=== PATIENT | female | born 1965 | race Two or more races ===

== ENCOUNTER 2018-09-18 10:42 | Inpatient (IN) | payer MEDICARE ==
[~2018-09-18] VITALS: Ht 172.7 cm; Wt 74.8 kg
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
[2018-09-18 14:01] LABS: APPEARANCE,URINE Slightly Cloudy (CLEAR); BILIRUBIN,URINE Negative (NEGATIVE); BLOOD, URINE Trace-lysed Ery/uL (NEGATIVE); COLOR,URINE Yellow (YELLOW); KETONES,URINE Trace (NEGATIVE); LEUKOCYTE ESTERASE ,URINE Small (NEGATIVE); NITRITE, URINE Negative (NEGATIVE); PH,URINE 5.5 (5.0-8.0); PROTEIN,URINE Trace mg/dl (NEGATIVE); UGLUCOSE Negative (NEGATIVE); UROBILINOGEN,URINE 0.2 EU/dL (0.2)
[2018-09-18 14:09] LABS: BACTERIA,URINE 1+ /HPF (None Seen); SQUAMOUS EPITHELIAL CELL,UR Few /HPF (None Seen)
[2018-09-18 14:15] LABS: BASOPHILS # (AUTO) 0.1 /CMM (0.0-0.2); BASOPHILS % (AUTO) 1.1 % (0.0-2.0); EOSINOPHILS % (AUTO) 5.4 % (0.0-6.0); HEMATOCRIT 50 % (33-45); HEMOGLOBIN 16.2 g/dL (11.5-14.8); LYMPHOCYTES # (AUTO) 1.5 /CMM (0.8-4.8); MEAN CORPUSCULAR HGB CONC 33 g/dl (31.0-36.0); MEAN CORPUSCULAR VOLUME 91 fL (82-100); MONOCYTES # (AUTO) 0.5 /CMM (0.1-1.30); MONOCYTES % (AUTO) 7.3 % (2.0-12.0); NEUTROPHILS # (AUTO) 4.6 /CMM (1.8-8.9); NEUTROPHILS % (AUTO) 65.2 % (43.0-81.0); PLATELET COUNT (AUTO) 273 /CMM (150-450); RED BLOOD CELL COUNT(AUTO) 5.49 MIL/uL (4.0-5.2); WHITE BLOOD COUNT (AUTO) 7.1 K/uL (4.3-11.0)
[2018-09-18 14:22] LABS: CALCIUM, SERUM 9.3 mg/dL (8.5-10.1); CARBON DIOXIDE 29 mmol/L (21-32); CHLORIDE 105 mmol/L (98-107); GLUCOSE 107 mg/dL (74-106); POTASSIUM 4.1 mmol/L (3.5-5.1); SODIUM SERUM 140 mmol/L (136-145); UREA NITROGEN, BLOOD 15 mg/dL (7-18)
[2018-09-18 14:28] LABS: ALANINE AMINOTRANSFERASE 31 U/L (12-78); ALBUMIN 3.4 g/dL (3.4-5.0); ALCOHOL, BLOOD < 3 mg/dL (0-0); ALKALINE PHOSPHATASE 110 U/L (46-116); ASPARTATE AMINOTRANSFERASE 19 U/L (15-37); BILIRUBIN,DIRECT 0.1 mg/dL (0.0-0.2); BILIRUBIN,TOTAL 0.8 mg/dL (0.2-1.0); SALICYLATE 0.9 mg/dL (2.8-20.0); TOTAL PROTEIN, SERUM 7.7 g/dL (6.4-8.2)
[2018-09-18 14:29] LABS: ACETAMINOPHEN < 2 ug/ml (10-30)
[2018-09-18] MEDS ORDERED: MULT-24 PO (15:02)
[2018-09-18] MEDS ORDERED: CALC-7 PO (15:02)
[2018-09-18] MEDS ORDERED: FERR325T23 PO (15:02)
--- NOTE | 2018-09-18 17:45 | NUR ---
REPORT GIVEN TO KENDAL CLARK FOR DUNG
[2018-09-18] MEDS ORDERED: FOLI1TAB16 PO (18:18)
[2018-09-18] MEDS ORDERED: THIA100T74 PO (18:18)
[2018-09-18] MEDS ORDERED: ACETAMINOPHEN 325 MG TABLET PO PRN (19:00)
[2018-09-18] MEDS ORDERED: TEMAZEPAM 7.5 MG CAPSULE PO PRN (19:00)
[2018-09-18] MEDS ORDERED: LORAZEPAM 0.5 MG TABLET PO PRN (19:00)
[2018-09-18] MEDS ORDERED: MAGNESIUM HYDROXIDE 30 ML UDC PO PRN (19:00)
[2018-09-18] MEDS ORDERED: MAG HYDROX/AL HYDROX/SIMETH 30 ML UDC PO PRN (19:00)
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
[2018-09-18 20:00] VITALS: BP 111/62
--- NOTE | 2018-09-19 06:17 | NUR ---
gps rn notes: inspected patient's right arm with the splint, noted patient's fingers to be swelling from the jonathon wrap. released the wrap. patient denies any pain this time. picture on the right hand/wrist area taken.will endorse to day shift nurse.
[2018-09-19 07:17] LABS: CALCIUM, SERUM 8.7 mg/dL (8.5-10.1); POTASSIUM 4.2 mmol/L (3.5-5.1)
[2018-09-19 07:43] LABS: ALBUMIN 3.2 g/dL (3.4-5.0); BILIRUBIN,TOTAL 0.9 mg/dL (0.2-1.0); TOTAL PROTEIN, SERUM 7.2 g/dL (6.4-8.2)
[2018-09-19 08:00] VITALS: BP 97/56
--- NOTE | 2018-09-19 12:27 | NUR ---
Pt. refused labs at this time.
--- NOTE | 2018-09-19 13:44 | NUR ---
WOUND CARE CONSULT: PT PRESENTS WITH LEFT INNER BUTTOCK SCARRING, VERY LONG DISCOLORED TOENAILS AND SLIGHT REDNESS TO BREASTFOLDS, PRESENT ON ADMISSION. RECOMMENDATONS MADE FOR SKIN PROTECTION. DISCUSSED WITH NURSING STAFF. RECOMMEND DPM CONSULT.
[2018-09-19] MEDS ORDERED: Z GUARD REMEDY 2 OZ OINT TP PRN (14:00)
[2018-09-19] MEDS: Z GUARD REMEDY 2 OZ OINT TP SCH (15:29)
[2018-09-19 16:00] VITALS: BP 120/64
[2018-09-19] MEDS: OLANZAPINE 5 MG/TAB.RAPDIS PO SCH (16:16)
[2018-09-19 20:15] VITALS: BP 102/67
--- NOTE | 2018-09-19 21:40 | NUR ---
GPS RN NOTE, PATIENT HAS A COMPLAINT OF COUGH AND CONGESTION. PATIENT SPO2 IS 91 % ON 2 LITERS VIA NASAL CANNULA. PATIENT IS WHEEZING THROUGHOUT WITH BILATERAL DIMINISHED BASES PER AUSCULTATION. PAGED [facility] AND INFORMED GILBERT LOVE DNP OF MY FINDINGS. GILBERT LOVE DNP ORDERED TO HAVE A CHEST X-RAY 1 VIEW STAT, GIVE ALBUTEROL 2.5MG / 3ML VIA NEB Q6HR PRN , AND GIVE IPRATROPIUM 0.5MG VIA NEB Q6HR PRN. ALL ORDERS NOTED AND CARRIED OUT. WILL CONTINUE TO MONITOR THIS PATIENT.
[2018-09-19] MEDS ORDERED: ALBUTEROL FS 2.5 MG/3 ML VIAL.NEB NEB PRN (22:00)
[2018-09-19] MEDS ORDERED: IPRATROPIUM NEB FS 0.5 MG/2.5 ML AMPUL.NEB NEB PRN (22:00)
[2018-09-19] MEDS: CEPHALEXIN MONOHYDRATE 250 MG CAPSULE PO SCH (23:49)
--- NOTE | 2018-09-20 00:23 | NUR ---
GPS RN NOTE, PATIENT CHEST X- RAY RESULTS ARE FOLLOWS, Cardiomegaly and pulmonary vascular congestion with diffuse interstitial infiltrates/edema and small bilateral pleural effusions AND Atherosclerotic disease of the aorta. [facility] AND INFORMED GILBERT LOVE DNP OF MY FINDINGS. GILBERT LOVE DNP ORDERED TO GIVE BUMEX 2MG PO ONCE NOW, TO GIVE BUMEX 2MG PO AT 0300 ONCE, TO GIVE KDUR 40 MEQ PO ONCE NOW, AND TO HAVE A BMP DRAWN AT 0600 A.M. ALL ORDERS NOTED AND CARRIED OUT. WILL CONTINUE TO MONITOR THIS PATIENT.
[2018-09-20 00:30] VITALS: BP 107/69
[2018-09-20] MEDS ORDERED: BUMETANIDE (1 MG) 1 MG TABLET PO ONE ×2 (00:30→03:00)
[2018-09-20] MEDS ORDERED: POTASSIUM CHLORIDE 20 MEQ TAB.PRT.SR PO ONE (00:30)
[2018-09-20] MEDS ORDERED: BUMETANIDE (1 MG) 1 MG TABLET ONE ×2 (01:05→03:14)
[2018-09-20 03:30] VITALS: BP 118/73
[2018-09-20] MEDS: CEPHALEXIN MONOHYDRATE 250 MG CAPSULE PO SCH (06:07)
[2018-09-20 08:00] VITALS: BP 114/50
[2018-09-20 08:45] LABS: ABG BASE EXCESS 4.2 mmol/L; ABG OXYGEN SATURATION 94.6 % (92.0-98.5); ABG PCO2 66.2 mmHg (35.0-45.0); ABG PH 7.312 (7.350-7.450); AaDO2 53.1 mmHg; COHb 1.2 % (0.5-1.5); MetHb 0.5 % (0.0-1.5); SITE, ABG Right Radial; VENT MODE, BG CANNULA
[2018-09-20] MEDS ORDERED: MULTIVITAMINS,THERAGRAN 1 UDTAB TABLET PO SCH (09:00)
[2018-09-20] MEDS ORDERED: FERROUS SULFATE (325 MG) 325 MG/TAB TABLET PO SCH (09:00)
[2018-09-20] MEDS ORDERED: CALCIUM CARB 250MG /VITAMIN D 1 UDTAB PO SCH (09:00)
[2018-09-20] MEDS ORDERED: FOLIC ACID 1 MG TABLET PO SCH (09:00)
[2018-09-20] MEDS: Z GUARD REMEDY 2 OZ OINT TP SCH (09:00)
[2018-09-20] MEDS ORDERED: THIAMINE HCL 100 MG TABLET PO SCH (09:00)
[2018-09-20] MEDS: OLANZAPINE 5 MG/TAB.RAPDIS PO SCH (09:00)
--- NOTE | 2018-09-20 09:08 | NUR ---
RN NOTE: KIKE ORDERED PATIENT TO BE TRANSFERED TO ICU. KIKE ORDERED TO HOLD MEDS OF PATIENTS.
--- NOTE | 2018-09-20 10:34 | NUR ---
DISCHARGE NOTE: PER REPORT, LAST NIGHT PATIENT HAD SHORTNESS OF BREATH, WHEEZING. CXRAY STATED PATIENT HAD PLEURAL EFFUSION. THIS MORNING [facility] ORDERED DISCHARGE TO ICU. UPON DISCHARGE PATIENT WAS ALERT AND ORIENTED AND AWAKE. BELONGINGS WITH PATIENT. EXIT CARE LEFT WITH PATIENT. GANESH PSYCHIATRIST AWARE OF DISCHARGE TO ICU.
--- NOTE | 2018-09-20 11:20 | NUR ---
Initial Discharge Plan: Pt is currently homeless and does not have anyone in her support system. Per pt, she would be willing to have the SW assist her in finding placement. SW stated that she would explore SNF placement for the pt. SW will work with the pt and the MD regarding appropriate discharge planning. SW will form a safe and proper discharge.
[2018-09-20 11:22] LABS: CALCIUM, SERUM 9.1 mg/dL (8.5-10.1); POTASSIUM 4.8 mmol/L (3.5-5.1)
--- NOTE | 2018-09-20 14:09 | NUR ---
SW conducted a substance abuse intervention with the pt but she refused to sign the assessment due to her paranoia.
--- NOTE | 2018-09-20 14:10 | NUR ---
SW went through the homeless waiver with the pt and she refused to sign the waiver due to her paranoia.
--- NOTE | 2018-09-20 14:10 | NUR ---
SW was discharged to [facility] ICU due to her medical condition. SW will follow the pt and will continue to explore SNF placement for the pt when her discharge approaches. Pt does not have any family to contact regarding the transfer as well as regarding the discharge planning. Addendum: 09/20/18 at 1513 by SAURABH HUNTER SW Discharge Note: KAROL was discharged to [facility] ICU due to her medical condition. SW will follow the pt and will continue to explore SNF placement for the pt when her discharge approaches. Pt does not have any family to contact regarding the transfer as well as regarding the discharge planning.
--- NOTE | 2018-09-22 14:18 | NUR ---
Yane ([phone]), pt's daughter, called the SW and inquired about the reasoning behind her admission and then inquired about her plan. SW was unable to provide an answer regarding her plan due to the fact that the pt was discharged from the geropsych unit and transferred the call to the appropriate caser shoe parts.
[2018-09-26] MEDS ORDERED: NITR100C6 PO (10:31)
[2018-09-26] MEDS ORDERED: IPRA0.2S9 NEB (10:31)
[2018-09-26] MEDS ORDERED: FURO40TA5 PO (10:31)
--- NOTE | 2018-10-04 14:19 | NUR ---
15 Day Substance Abuse Follow Up: Pt was exempt from the follow up because the pt was discharged to the Medical Floor of [facility] within 30 days of her discharge from the Geropsychiatric Unit of the hospital.
== END 2018-09-20 10:15 | disposition short-term general hospital (02) | DRG 885 ==
LOC: ER 10:48 → GPS 17:48
PROVIDERS: ADMIT Psychiatry & Neurology Psychiatry; ATTEND Psychiatry & Neurology Psychiatry
DX: F20.0 Paranoid schizophrenia (principal); N39.0 Urinary tract infection, site not specified; Z59.0 Homelessness; E86.0 Dehydration; B96.20 Unspecified Escherichia coli [E. coli] as the cause of diseases classified elsewhere; Z16.12 Extended spectrum beta lactamase (ESBL) resistance; S62.101S Fracture of unspecified carpal bone, right wrist, sequela
CPT/HCPCS: 36415; 36600; 71045-TC; 80048-TC; 80053-TC; 80061-TC; 80076-TC; 80305; 81000-TC; 85025-TC; 87081-TC; 87086-TC; 87186-TC; 94799-TC; G0480

== ENCOUNTER 2018-09-20 09:50 | Inpatient (IN) | payer MEDICARE ==
[~2018-09-20] VITALS: Ht 174 cm; Wt 116.1 kg
[2018-09-20] VITALS (15 sets, daily range): BP systolic 93–135; BP diastolic 47–98
[~2018-09-20 09:50] MED LIST: CALC-7 PO; FERR325T23 PO; FOLI1TAB16 PO; MULT-24 PO; THIA100T74 PO
--- NOTE | 2018-09-20 10:15 | NUR ---
CUSTOMER SECURITY CLERK received pt from GPS on wheelchair, awake no s/s of distress pt able to communicate, rr stable sat 96% pink body color, pt hooked up to monitor vs stable pt is aox1 follow command pleasantly nice, sitter at bedside, pt does not have any suicidal thoughts, denies harming herself and others, pt was notified incase she has thoughts to harm herself and others to notify me or other staff, bed bath given multiple skin issues present, wound consult initiated abg done dr. Campos aware keep pt on nc for now and bipap at night. pt is comfortable resting in bed.
[2018-09-20] MEDS ORDERED: MAG HYDROX/AL HYDROX/SIMETH 30 ML UDC PO PRN (10:30)
[2018-09-20] MEDS ORDERED: ONDANSETRON HCL/PF 4 MG/2 ML VIAL IVP PRN (10:30)
[2018-09-20] MEDS ORDERED: ACETAMINOPHEN 325 MG TABLET PO PRN (10:30)
[2018-09-20] MEDS ORDERED: HYDROCODONE/APAP 5/325MG 1 EACH TABLET PO PRN (10:30)
[2018-09-20] MEDS ORDERED: MAGNESIUM HYDROXIDE 30 ML UDC PO PRN (10:30)
[2018-09-20] MEDS ORDERED: ZOLPIDEM TARTRATE 5 MG TABLET PO PRN (10:30)
[2018-09-20] MEDS ORDERED: Z GUARD REMEDY 2 OZ OINT TP PRN (10:30)
[2018-09-20 10:33] LABS: ABG BASE EXCESS 8.2 mmol/L; ABG OXYGEN SATURATION 94.2 % (92.0-98.5); ABG PCO2 51.3 mmHg (35.0-45.0); ABG PH 7.441 (7.350-7.450); ABG PO2 68.5 mmHg (75.0-100.0); AaDO2 85.1 mmHg; COHb 1.2 % (0.5-1.5); MetHb 0.5 % (0.0-1.5); O2Hb 92.6 % (94.0-97.0); SITE, ABG Right Radial; VENT MODE, BG Nasal Cannula
[2018-09-20] MEDS: IPRATROPIUM NEB FS 0.5 MG/2.5 ML AMPUL.NEB NEB SCH ×3 (11:00→20:21)
[2018-09-20] MEDS: ALBUTEROL HALF STRENGTH 1.25 MG/3 ML VIAL.NEB NEB SCH ×3 (11:00→20:21)
[2018-09-20 11:17] LABS: CALCIUM, SERUM 9.2 mg/dL (8.5-10.1); CREATININE 1.1 mg/dL (0.6-1.3); POTASSIUM 4.3 mmol/L (3.5-5.1)
[2018-09-20 11:24] LABS: BASOPHILS % (AUTO) 0.4 % (0.0-2.0); HEMATOCRIT 49 % (33-45); HEMOGLOBIN 15.5 g/dL (11.5-14.8); LYMPHOCYTES # (AUTO) 1.5 /CMM (0.8-4.8); LYMPHOCYTES % (AUTO) 19.8 % (20.0-44.0); MEAN CORPUSCULAR HGB CONC 32 g/dl (31.0-36.0); MEAN CORPUSCULAR VOLUME 92 fL (82-100); MONOCYTES # (AUTO) 0.6 /CMM (0.1-1.30); MONOCYTES % (AUTO) 7.8 % (2.0-12.0); NEUTROPHILS # (AUTO) 5.1 /CMM (1.8-8.9); PLATELET COUNT (AUTO) 233 /CMM (150-450); WHITE BLOOD COUNT (AUTO) 7.5 K/uL (4.3-11.0)
[2018-09-20] MEDS: FUROSEMIDE 40 MG/4 ML VIAL IV SCH ×2 (11:26→18:27)
[2018-09-20 11:32] LABS: ALBUMIN 3.6 g/dL (3.4-5.0); BILIRUBIN,TOTAL 0.9 mg/dL (0.2-1.0); MAGNESIUM 2.1 mg/dL (1.8-2.4); TOTAL PROTEIN, SERUM 7.9 g/dL (6.4-8.2)
[2018-09-20] MEDS ORDERED: PIPERACILLIN /TAZOBACTAM 3.375 G in IV D5W 50 ML IV ONE (12:00)
--- NOTE | 2018-09-20 16:50 | NUR ---
FOREIGN FOOD COOK SPECIALTY NOTES: SEIZURE ORDERS PT HAD A WITNESS TONIC CLONIC SEIZURE FOR 30 SECONDS. AIRWAY PROTECTED. VSS. DR. CEVALLOS NOTIFIED. TELEPHONE ORDERS GIVEN TO BEGIN KEPPRA 500MG BID, NEURO CONSULT, STAT EEG AND STAT HEAD CT WITHOUT CONTRAST. ORDERS IMPUTED AND WILL CARRY OUT ACCORDINGLY
[2018-09-20] MEDS: LEVETIRACETAM (500MG) 500 MG in IV NS 0.9% 100 ML IV SCH (17:00)
[2018-09-20] MEDS ORDERED: LORAZEPAM INJ 2 MG/ML VIAL IV PRN (17:00)
[2018-09-20] MEDS: HEPARIN SODIUM, PORCINE 5000 UNITS/1 ML VIAL SQ SCH (18:28)
[2018-09-20] MEDS: PIPERACILLIN /TAZOBACTAM 3.375 G in IV D5W 100 ML IV SCH (18:35)
--- NOTE | 2018-09-20 19:30 | NUR ---
ORCHID HAND RCD PT W/DX HYPERCAPNIC RESP FAIL; PT IS AWAKE ALERT TO NAME; NOT MOTIVATED TO FOLLOW COMMANDS. PT DENIES PAIN AT THIS TIME. NSR W/PVCs ON MONITOR. O2 2L VIA NC. SATURATION > 95. NO RESP DIST NOTED. RIGHT HAND 20 G PATENT AND FLUSHING WELL. PT HAS MULTIPLE SKIN ISSUES PENDING WOUND CONSULT. ORDERS TO PLACE ON NOCTURNAL AVAPS. SITTER AT BEDSIDE PT IS ON HOLD UNTIL 09/21 1545.
--- NOTE | 2018-09-20 20:00 | NUR ---
STAMPING DIE MAKER BENCH PT REPEATEDLY REMOVING NASAL CANNULA WITH SATURATION DROPPING TO THE MID 80s; MULTIPLE ATTEMPTS TO REAPPLY CANNULA AND PT BECOMES AGGRESSIVE SCREAMING "I DON'T WANT IT I DON'T WANT IT. EDUCATION PROVIDE TO PT REGARDING THE NEED FOR THE OXYGEN BUT PT REFUSES TO OPEN EYES. CONTINUE TO MONITOR.
--- NOTE | 2018-09-20 20:55 | NUR ---
MOVING CONSULTANT SATURATION 82%; REMOVING NASAL CANNULA. PT BECOMES AGGRESSIVE WHEN ASKED TO REPLACE IT. CONTINUE TO MONITOR.
[2018-09-20] MEDS ORDERED: CEPHALEXIN MONOHYDRATE 500 MG CAPSULE PO SCH (21:00)
--- NOTE | 2018-09-20 21:14 | NUR ---
ALBACORE FISHING BOAT CREWMAN EXPLAINED TO PT SHE WOULD BE PLACED IN AVAPS. PT COMPLIANT AT THIS TIME. PT PLACED ON AVAPS BY RT; SETTINGS TV 550 RR 12 35% PEEP 10. CONTINUE TO MONITOR.
--- NOTE | 2018-09-20 21:20 | NUR ---
PT PLACED ON AVAPS MODE PER PELEG. VT 550, PEEP 10, R 12, 35%. KENDAL GUTIÉRREZ NOTIFIED. Addendum: 09/20/18 at 2121 by COLLEEN GARCIA RT Amended: Links added.
--- NOTE | 2018-09-20 21:23 | NUR ---
FUNDRAISING ASSISTANT PT ATTEMPTING TO REMOVE BIPAP; SITTER REINFORCING THE NEED TO KEEP IT ON. PT SHAKING HEAD NO WITH INCREASED AGITATION. CONTINUE TO MONITOR.
[2018-09-21] VITALS (19 sets, daily range): BP systolic 95–123; BP diastolic 55–93
--- NOTE | 2018-09-21 | NUR ---
TANK TRUCK MILK RECEIVER PT NOTED WITH EPISODES OF RESTLESSNESS; REPEATEDLY KICKING LEGS UP IN THE AIR. PT WON'T ACKNOWLEDGE STAFF IS SHE NEEDS SOMETHING. PT ATTEMPTING TO REMOVE BIPAP. SITTER AND NURSING REINFORCING THE NEED TO KEEP BIPAP ON. NO SEIZURE ACTIVITY NOTED. CONTINUE TO MONITOR.
[2018-09-21] MEDS: PIPERACILLIN /TAZOBACTAM 3.375 G in IV D5W 100 ML IV SCH (01:00)
[2018-09-21] MEDS: IPRATROPIUM NEB FS 0.5 MG/2.5 ML AMPUL.NEB NEB SCH ×4 (01:40→19:34)
[2018-09-21] MEDS: ALBUTEROL HALF STRENGTH 1.25 MG/3 ML VIAL.NEB NEB SCH ×4 (01:40→19:34)
[2018-09-21 04:20] LABS: BASOPHILS % (AUTO) 0.7 % (0.0-2.0); EOSINOPHILS % (AUTO) 5.5 % (0.0-6.0); HEMATOCRIT 45 % (33-45); HEMOGLOBIN 14.8 g/dL (11.5-14.8); LYMPHOCYTES # (AUTO) 1.4 /CMM (0.8-4.8); LYMPHOCYTES % (AUTO) 21.2 % (20.0-44.0); MEAN CORPUSCULAR HGB CONC 33 g/dl (31.0-36.0); MEAN CORPUSCULAR VOLUME 90 fL (82-100); MONOCYTES # (AUTO) 0.6 /CMM (0.1-1.30); MONOCYTES % (AUTO) 9.6 % (2.0-12.0); NEUTROPHILS # (AUTO) 4.2 /CMM (1.8-8.9); PLATELET COUNT (AUTO) 243 /CMM (150-450); RED BLOOD CELL COUNT(AUTO) 5.03 MIL/uL (4.0-5.2); WHITE BLOOD COUNT (AUTO) 6.7 K/uL (4.3-11.0)
[2018-09-21 04:50] LABS: CALCIUM, SERUM 9.3 mg/dL (8.5-10.1); CREATININE 1.2 mg/dL (0.6-1.3); MAGNESIUM 2.4 mg/dL (1.8-2.4); PHOSPHORUS 3.7 mg/dL (2.5-4.9); POTASSIUM 3.7 mmol/L (3.5-5.1)
[2018-09-21] MEDS: LEVETIRACETAM (500MG) 500 MG in IV NS 0.9% 100 ML IV SCH (05:10)
--- NOTE | 2018-09-21 07:08 | NUR ---
LUBRICATION SERVICER NO SEIZURE ACTIVITY NOTED DURING SHIFT. 1:1 SITTER REMAINED AT BEDSIDE.
--- NOTE | 2018-09-21 07:39 | NUR ---
REPORT RECEIVED FROM BROCK RN, PT AT BEDSIDE ON BIPAP WITH CAREN GOEL AT BEDSIDE; NIL SOFT WRIST RESTRAINTS ON; PT DENIES PAIN, FOLLOWS SIMPLE COMMANDS IE; SHOWING 2 FINGERS, LIFTING LEGS AND SQUEEZING RN HAND ON COMMAND
[2018-09-21] MEDS: HEPARIN SODIUM, PORCINE 5000 UNITS/1 ML VIAL SQ SCH ×2 (08:21→21:17)
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
--- NOTE | 2018-09-21 08:53 | NUR ---
SEEN BY DR CEVALLOS, AWARE OF UPDATES
[2018-09-21] MEDS: POTASSIUM CHLORIDE 20 MEQ TAB.PRT.SR PO SCH ×3 (09:07→12:22)
[2018-09-21] MEDS: FUROSEMIDE 40 MG/4 ML VIAL IV SCH ×2 (09:07→12:22)
--- NOTE | 2018-09-21 09:10 | NUR ---
WOUND CARE CONSULT: PT PRESENTS WITH REDNESS TO LEFT LOWER EYELID, SCARRING TO LEFT BUTTOCK, RED RASH TO BREASTFOLDS AND SOME REDNESS TO ABDOMINAL FOLDS, ALL PRESENT ON ADMISSION. ALL SKIN PROTECTION AND SKIN CARE RECOMMENDATIONS DISCUSSED WITH NURSING STAFF. WILL SEE CARLOS. IN AGREEMENT WITH PLAN OF CARE. DEFER TO MD FOR LEFT EYELID REDNESS. CURRENT SPRING SCORE IS 20. Addendum: 09/21/18 at 0912 by MELY NOVA WNDNU Amended: Links added.
[2018-09-21 09:30] LABS: ABG BASE EXCESS 8.7 mmol/L; ABG OXYGEN SATURATION 94.5 % (92.0-98.5); ABG PCO2 46.8 mmHg (35.0-45.0); ABG PH 7.475 (7.350-7.450); ABG PO2 71.2 mmHg (75.0-100.0); AaDO2 73.2 mmHg; COHb 1.2 % (0.5-1.5); MetHb 0.4 % (0.0-1.5); SITE, ABG Right Radial
[2018-09-21] MEDS ORDERED: MEROPENEM 500 MG in IV NS 0.9% 50 ML IV ONE (10:00)
--- NOTE | 2018-09-21 10:55 | NUR ---
FOR TRANSFER TO 104, REPORT GIVEN TO CAROL EDMONDS
--- NOTE | 2018-09-21 11:04 | NUR ---
TRANSFERRED VIA BED/ACLS TRANSPORT TO [facility] C/O ANEESH EDMONDS AND CAREN GOEL
--- NOTE | 2018-09-21 16:18 | NUR ---
RN NOTE PT HAS SR ON TELEMETRY WITH TRIGEMINAL PVCs RATE 86, DR CEVALLOS AND DR STALLWORTH NOTIFIED, NO NEW ORDERS AT THIS TIME, BUT TO CHECK CHEM7 AND MG IN AM.
[2018-09-21] MEDS: MEROPENEM 500 MG in IV NS 0.9% 100 ML IV SCH ×2 (17:35→18:13)
[2018-09-21] MEDS: CLOTRIMAZOLE 1% 15 GM TUBE TP SCH (17:35)
--- NOTE | 2018-09-21 19:06 | NUR ---
RN NOTE PT'S DAUGHTER YUDY JONES, PHONE NUMBER [phone] VISITED THE PT AND REQUESTED PAPERWORK TO OBTAIN DURABLE POWER OF DIRECTOR SUPPLY CHAIN AND TO FIND HER MOTHER A PLACEMENT. CASE MANAGEMENT NOTIFIED. AND NEED TO FOLLOW UP WITH PASSENGER CAR CONDUCTOR GORAN. WILL ENDORSE TO LIME HIDE INSPECTOR.
--- NOTE | 2018-09-21 19:30 | NUR ---
TD RN NOTE: RECEIVED PT ON BED ALERT AND AWAKE. DAUGHTER YUDY AND SITTER AT BEDSIDE. NO APPARENT DISTRESS NOTED. DENIES PAIN AND DISCOMFORT AT THIS TIME. ON 2LPM NASAL CANNULA, NO SOB NOTED AT THIS TIME. ON TELE MONITOR, SINUS RHYTHM HR 97BPM. IV ON RIGHT HAND #20 INTACT AND PATENT, FLUSHING WELL. KEPT CLEAN, DRY AND COMFORTABLE. SAFETY AND FALL PRECAUTIONS OBSERVED AND MAINTAINED. WILL CONTINUE TO MONITOR PT.
[2018-09-22] VITALS: BP 100/59
[2018-09-22] MEDS: MEROPENEM 500 MG in IV NS 0.9% 100 ML IV SCH ×3 (01:01→17:00)
[2018-09-22] MEDS: IPRATROPIUM NEB FS 0.5 MG/2.5 ML AMPUL.NEB NEB SCH ×5 (01:03→19:18)
[2018-09-22] MEDS: ALBUTEROL HALF STRENGTH 1.25 MG/3 ML VIAL.NEB NEB SCH ×5 (01:04→19:18)
[2018-09-22 04:00] VITALS: BP 110/62
[2018-09-22 07:05] LABS: BASOPHILS % (AUTO) 0.6 % (0.0-2.0); EOSINOPHILS % (AUTO) 7.3 % (0.0-6.0); HEMATOCRIT 47 % (33-45); HEMOGLOBIN 15.6 g/dL (11.5-14.8); LYMPHOCYTES # (AUTO) 1.5 /CMM (0.8-4.8); LYMPHOCYTES % (AUTO) 27.2 % (20.0-44.0); MEAN CORPUSCULAR HGB CONC 33 g/dl (31.0-36.0); MEAN CORPUSCULAR VOLUME 90 fL (82-100); MONOCYTES # (AUTO) 0.6 /CMM (0.1-1.30); MONOCYTES % (AUTO) 10.5 % (2.0-12.0); NEUTROPHILS # (AUTO) 3.1 /CMM (1.8-8.9); NEUTROPHILS % (AUTO) 54.4 % (43.0-81.0); PLATELET COUNT (AUTO) 208 /CMM (150-450); RED BLOOD CELL COUNT(AUTO) 5.22 MIL/uL (4.0-5.2); WHITE BLOOD COUNT (AUTO) 5.6 K/uL (4.3-11.0)
[2018-09-22 07:10] LABS: CALCIUM, SERUM 9.3 mg/dL (8.5-10.1); MAGNESIUM 2.3 mg/dL (1.8-2.4); PHOSPHORUS 4.5 mg/dL (2.5-4.9); POTASSIUM 4.2 mmol/L (3.5-5.1)
--- NOTE | 2018-09-22 07:11 | NUR ---
TD RN NOTE: NO CHANGES NOTED THROUGHOUT THE SHIFT. NO APPARENT DISTRESS NOTED. SITTER AT BEDSIDE. NO SOB NOTED. SINUS RHYTHM ON TELE MONITOR 78BPM. IV ON RIGHT HAND #20 INTACT AND PATENT, FLUSFHING WELL. KEPT CLEAN, DRY AND COMFORTABLE. SAFETY AND FALL PRECAUTIONS OBSERVED AND MAINTAINED. ENDORSED TO DAY SHIFT RN FOR CONTINUITY OF CARE.
--- NOTE | 2018-09-22 07:12 | NUR ---
RN INITIAL NOTES: Rec'd pt asleep on bed, easily arousable, not in any distress. Pt is on NC/2lpm, no SOB. On telemonitor, SR w/ PVC HR 98 bpm. Has R Hand G20 SL, w/ no s/sx of infection/infiltration noted. Has 1:1 sitter for 14 day hold - gravely disabled. Safety precautions in place. Bed in locked & lowest pos. Call light placed w/in reach. Will cont to monitor & assess pt needs.
[2018-09-22 08:00] VITALS: BP 102/62
[2018-09-22] MEDS: CLOTRIMAZOLE 1% 15 GM TUBE TP SCH ×2 (08:35→16:59)
[2018-09-22] MEDS: HEPARIN SODIUM, PORCINE 5000 UNITS/1 ML VIAL SQ SCH ×2 (08:35→21:30)
[2018-09-22] MEDS: FUROSEMIDE 40 MG/4 ML VIAL IV SCH ×3 (09:41→16:58)
[2018-09-22 12:00] VITALS: BP 101/70
[2018-09-22 16:00] VITALS: BP 120/77
--- NOTE | 2018-09-22 16:27 | NUR ---
Report given to Bushra EDMONDS for DUNG. Addendum: 09/22/18 at 1645 by ZLEDA ECHEVARRIA RN Addendum: Dr. Morrison updated about pt status.
--- NOTE | 2018-09-22 17:00 | NUR ---
RN NOTES PT RECEIVED FROM ZELDA RN ,PT STABLE , NO DISTRESS NOTED , CONTINUE TO MONITOR .
[2018-09-22 20:00] VITALS: BP 111/65
--- NOTE | 2018-09-22 20:00 | NUR ---
SENIOR POLICY ANALYST INITIAL NOTE: RECEIVED PT ON BED ALERT AND AWAKE. SITTER AT BEDSIDE. NO APPARENT DISTRESS NOTED. DENIES PAIN AND DISCOMFORT AT THIS TIME. ON 2LPM NASAL CANNULA, NO SOB NOTED AT THIS TIME. ON TELE MONITOR, SINUS RHYTHM HR 54 BPM. IV ON RIGHT HAND #20 INTACT AND PATENT, FLUSHING WELL. KEPT CLEAN, DRY AND COMFORTABLE. SAFETY AND FALL PRECAUTIONS OBSERVED AND MAINTAINED. WILL CONTINUE TO MONITOR PT.
[2018-09-23] VITALS (8 sets, daily range): BP systolic 100–126; BP diastolic 61–80
[2018-09-23] MEDS: IPRATROPIUM NEB FS 0.5 MG/2.5 ML AMPUL.NEB NEB SCH ×4 (01:30→19:30)
[2018-09-23] MEDS: MEROPENEM 500 MG in IV NS 0.9% 100 ML IV SCH ×3 (01:30→17:00)
[2018-09-23] MEDS: ALBUTEROL HALF STRENGTH 1.25 MG/3 ML VIAL.NEB NEB SCH ×4 (01:30→19:30)
[2018-09-23 06:29] LABS: BASOPHILS % (AUTO) 0.5 % (0.0-2.0); EOSINOPHILS % (AUTO) 6.6 % (0.0-6.0); HEMATOCRIT 49 % (33-45); HEMOGLOBIN 16.1 g/dL (11.5-14.8); LYMPHOCYTES # (AUTO) 1.7 /CMM (0.8-4.8); LYMPHOCYTES % (AUTO) 25.7 % (20.0-44.0); MEAN CORPUSCULAR HGB CONC 33 g/dl (31.0-36.0); MEAN CORPUSCULAR VOLUME 90 fL (82-100); MONOCYTES # (AUTO) 0.7 /CMM (0.1-1.30); MONOCYTES % (AUTO) 10.6 % (2.0-12.0); NEUTROPHILS # (AUTO) 3.8 /CMM (1.8-8.9); NEUTROPHILS % (AUTO) 56.6 % (43.0-81.0); PLATELET COUNT (AUTO) 214 /CMM (150-450); RED BLOOD CELL COUNT(AUTO) 5.44 MIL/uL (4.0-5.2); WHITE BLOOD COUNT (AUTO) 6.6 K/uL (4.3-11.0)
[2018-09-23 06:37] LABS: ALBUMIN 3.4 g/dL (3.4-5.0); BILIRUBIN,TOTAL 1.4 mg/dL (0.2-1.0); CALCIUM, SERUM 9.3 mg/dL (8.5-10.1); MAGNESIUM 2.2 mg/dL (1.8-2.4); PHOSPHORUS 4.3 mg/dL (2.5-4.9); POTASSIUM 3.7 mmol/L (3.5-5.1); TOTAL PROTEIN, SERUM 7.8 g/dL (6.4-8.2)
--- NOTE | 2018-09-23 06:42 | NUR ---
BOOT MAKER CLOSING NOTE: ENDORSED PT ON BED ALERT AND AWAKE. SITTER AT BEDSIDE. NO APPARENT DISTRESS NOTED. DENIES PAIN AND DISCOMFORT AT THIS TIME. ON 2LPM NASAL CANNULA, NO SOB NOTED AT THIS TIME. ON TELE MONITOR, SINUS RHYTHM HR 60 BPM. IV ON RIGHT HAND #20 INTACT AND PATENT, FLUSHING WELL. KEPT CLEAN, DRY AND COMFORTABLE. SAFETY AND FALL PRECAUTIONS OBSERVED AND MAINTAINED. WILL CONTINUE TO MONITOR PT.
--- NOTE | 2018-09-23 07:00 | NUR ---
RN NOTE: RECEIVED PT ON BED, SLEEPING AT THIS TIME, RESPIRATION EVEN AND UNLABORED,ON 2L O2 N/C , NO SOB NOTED, ON TELE SR WITH PVC , HR IN 80'S . R HAND IV SITE G 20 CLEAN , DRY AND INTACT, SITTER AT THE BEDSIDE FOR SAFETY PRECAUTIONS , CONTINUE TO MONITOR .
[2018-09-23] MEDS: HEPARIN SODIUM, PORCINE 5000 UNITS/1 ML VIAL SQ SCH ×2 (08:22→21:00)
[2018-09-23] MEDS: CLOTRIMAZOLE 1% 15 GM TUBE TP SCH ×2 (08:23→17:00)
[2018-09-23] MEDS: POTASSIUM CHLORIDE 20 MEQ TAB.PRT.SR PO SCH ×3 (11:29→13:58)
[2018-09-23] MEDS: FUROSEMIDE 40 MG/4 ML VIAL IV SCH ×3 (11:29→22:55)
--- NOTE | 2018-09-23 12:00 | NUR ---
RN NOTES PT STABLE , SITTER AT THE BEDSIDE, CONTINUE TO MONITOR .
--- NOTE | 2018-09-23 18:47 | NUR ---
RN NOTES NO SIGNIFICANT CHANGES NOTED ON THIS SHIFT, PT STABLE , WILL ENDOSE TO DIRECTOR OF INSTITUTIONAL RESEARCH NURSE FOR CONTINUITY OF CARE .
--- NOTE | 2018-09-23 20:00 | NUR ---
EMERGENCY DEPARTMENT RN INITIAL NOTE: RECEIVED PT ON BED ALERT AND AWAKE. SITTER AT BEDSIDE. NO APPARENT DISTRESS NOTED. DENIES PAIN AND DISCOMFORT AT THIS TIME. ON 2LPM NASAL CANNULA, NO SOB NOTED AT THIS TIME. ON TELE MONITOR, SINUS RHYTHM HR 70'S BPM. IV ON RIGHT HAND #20 INTACT AND PATENT, FLUSHING WELL. KEPT CLEAN, DRY AND COMFORTABLE. SAFETY AND FALL PRECAUTIONS OBSERVED AND MAINTAINED. WILL CONTINUE TO MONITOR PT.
--- NOTE | 2018-09-23 21:32 | NUR ---
HEPARIN 5000 UNITS PT REFUSED. OFFERED X 3 RISKS AND BENEFIT EXPLAINED.
[2018-09-23] MEDS ORDERED: FUROSEMIDE 40 MG/4 ML VIAL ONE (22:53)
[2018-09-24] VITALS: BP 119/74
[2018-09-24] MEDS: MEROPENEM 500 MG in IV NS 0.9% 100 ML IV SCH ×3 (01:23→17:09)
[2018-09-24] MEDS: ALBUTEROL HALF STRENGTH 1.25 MG/3 ML VIAL.NEB NEB SCH ×4 (01:30→19:24)
[2018-09-24] MEDS: IPRATROPIUM NEB FS 0.5 MG/2.5 ML AMPUL.NEB NEB SCH ×4 (01:30→19:24)
[2018-09-24 04:00] VITALS: BP 120/62
--- NOTE | 2018-09-24 06:54 | NUR ---
SUPERVISOR MACHINE WORKERS CLOSING NOTE: ENDORSED PT ON BED ALERT AND AWAKE. SITTER AT BEDSIDE. NO APPARENT DISTRESS NOTED. DENIES PAIN AND DISCOMFORT AT THIS TIME. ON 2LPM NASAL CANNULA, NO SOB NOTED AT THIS TIME. ON TELE MONITOR, SINUS RHYTHM HR 70'S BPM. IV ON RIGHT HAND #20 INTACT AND PATENT, FLUSHING WELL. KEPT CLEAN, DRY AND COMFORTABLE. SAFETY AND FALL PRECAUTIONS OBSERVED AND MAINTAINED. WILL CONTINUE TO MONITOR PT.
--- NOTE | 2018-09-24 07:00 | NUR ---
PRODUCT OWNER CLOSING NOTE: ENDORSED PT ON BED ALERT AND AWAKE. SITTER AT BEDSIDE. NO APPARENT DISTRESS NOTED. DENIES PAIN AND DISCOMFORT AT THIS TIME. ON 2LPM NASAL CANNULA, NO SOB NOTED AT THIS TIME. ON TELE MONITOR, SINUS RHYTHM HR 70'S BPM. IV ON RIGHT HAND #20 INTACT AND PATENT, FLUSHING WELL. KEPT CLEAN, DRY AND COMFORTABLE. SAFETY AND FALL PRECAUTIONS OBSERVED AND MAINTAINED. ISOLATION PRECAUTIONS MAINTAINED. WILL CONTINUE TO MONITOR PT. Addendum: 09/24/18 at 1931 by GWEN TORRES RN KENDAL OPENING NOTE
[2018-09-24 07:17] LABS: BASOPHILS % (AUTO) 0.4 % (0.0-2.0); EOSINOPHILS % (AUTO) 6.2 % (0.0-6.0); HEMATOCRIT 49 % (33-45); LYMPHOCYTES # (AUTO) 1.4 /CMM (0.8-4.8); LYMPHOCYTES % (AUTO) 20.2 % (20.0-44.0); MEAN CORPUSCULAR HGB CONC 33 g/dl (31.0-36.0); MEAN CORPUSCULAR VOLUME 90 fL (82-100); MONOCYTES # (AUTO) 0.7 /CMM (0.1-1.30); MONOCYTES % (AUTO) 10.6 % (2.0-12.0); NEUTROPHILS # (AUTO) 4.3 /CMM (1.8-8.9); NEUTROPHILS % (AUTO) 62.6 % (43.0-81.0); PLATELET COUNT (AUTO) 219 /CMM (150-450); RED BLOOD CELL COUNT(AUTO) 5.42 MIL/uL (4.0-5.2); WHITE BLOOD COUNT (AUTO) 6.8 K/uL (4.3-11.0)
[2018-09-24 07:35] LABS: ALBUMIN 3.4 g/dL (3.4-5.0); BILIRUBIN,TOTAL 1.3 mg/dL (0.2-1.0); CALCIUM, SERUM 9.5 mg/dL (8.5-10.1); MAGNESIUM 2.3 mg/dL (1.8-2.4); POTASSIUM 4.1 mmol/L (3.5-5.1); TOTAL PROTEIN, SERUM 7.9 g/dL (6.4-8.2)
[2018-09-24 08:00] VITALS: BP 108/81
[2018-09-24] MEDS: HEPARIN SODIUM, PORCINE 5000 UNITS/1 ML VIAL SQ SCH ×2 (09:48→21:19)
[2018-09-24] MEDS: CLOTRIMAZOLE 1% 15 GM TUBE TP SCH ×2 (09:51→17:09)
[2018-09-24] MEDS: FUROSEMIDE 40 MG TABLET PO SCH (10:22)
[2018-09-24 16:00] VITALS: BP 104/67
--- NOTE | 2018-09-24 19:31 | NUR ---
MS RN NOTES PT IN BED, WATCHING TV. SITTER AT BS. ALL NEEDS ATTENDED TO. SAFETY PRECAUTIONS IN PLACE. CALL LIGHT IN REACH.
[2018-09-24 20:00] VITALS: BP 108/73
--- NOTE | 2018-09-24 22:22 | NUR ---
RT PT IS AWAKE AND ALERT. PT IS REFUSING BiPAP AT THIS TIME, NO SOB OR RESPIRATORY DISTRESS NOTED. SITTER BY BEDSIDE. Addendum: 09/24/18 at 2223 by AKILA JARVIS RT Amended: Links added.
[2018-09-25] MEDS: IPRATROPIUM NEB FS 0.5 MG/2.5 ML AMPUL.NEB NEB SCH ×4 (01:46→20:24)
[2018-09-25] MEDS: ALBUTEROL HALF STRENGTH 1.25 MG/3 ML VIAL.NEB NEB SCH ×4 (01:46→20:24)
[2018-09-25] MEDS: MEROPENEM 500 MG in IV NS 0.9% 100 ML IV SCH ×3 (02:48→17:14)
[2018-09-25 04:00] VITALS: BP 101/59
--- NOTE | 2018-09-25 07:00 | NUR ---
PAINT MIXER HAND OPENING NOTE: RECEIVED PT ON BED A/OX2. SITTER AT BEDSIDE. PT IS ON ROOM AIR. O2 WNL; SOB ON EXERTION. NO APPARENT DISTRESS NOTED. DENIES PAIN AND DISCOMFORT AT THIS TIME. IV ON RIGHT HAND #20 INTACT AND PATENT, FLUSHING WELL. KEPT CLEAN, DRY AND COMFORTABLE. SAFETY AND FALL PRECAUTIONS OBSERVED AND MAINTAINED. ISOLATION PRECAUTIONS MAINTAINED. WILL CONTINUE TO MONITOR PT.
[2018-09-25 08:00] VITALS: BP 113/72
[2018-09-25] MEDS: FUROSEMIDE 40 MG TABLET PO SCH (09:24)
[2018-09-25] MEDS: HEPARIN SODIUM, PORCINE 5000 UNITS/1 ML VIAL SQ SCH ×2 (09:24→21:11)
[2018-09-25] MEDS: CLOTRIMAZOLE 1% 15 GM TUBE TP SCH ×2 (09:30→17:17)
[2018-09-25 11:11] LABS: BASOPHILS % (AUTO) 0.5 % (0.0-2.0); EOSINOPHILS % (AUTO) 4.5 % (0.0-6.0); HEMATOCRIT 47 % (33-45); HEMOGLOBIN 15.4 g/dL (11.5-14.8); LYMPHOCYTES # (AUTO) 1.2 /CMM (0.8-4.8); LYMPHOCYTES % (AUTO) 19.7 % (20.0-44.0); MEAN CORPUSCULAR HGB CONC 33 g/dl (31.0-36.0); MEAN CORPUSCULAR VOLUME 90 fL (82-100); MONOCYTES # (AUTO) 0.7 /CMM (0.1-1.30); MONOCYTES % (AUTO) 11.1 % (2.0-12.0); NEUTROPHILS # (AUTO) 3.8 /CMM (1.8-8.9); NEUTROPHILS % (AUTO) 64.2 % (43.0-81.0); PLATELET COUNT (AUTO) 218 /CMM (150-450); RED BLOOD CELL COUNT(AUTO) 5.18 MIL/uL (4.0-5.2)
[2018-09-25 11:24] LABS: CALCIUM, SERUM 9.1 mg/dL (8.5-10.1); CREATININE 0.9 mg/dL (0.6-1.3); MAGNESIUM 2.2 mg/dL (1.8-2.4); PHOSPHORUS 3.2 mg/dL (2.5-4.9)
[2018-09-25 16:00] VITALS: BP 102/73
--- NOTE | 2018-09-25 19:11 | NUR ---
MS RN CLOSING NOTES PT IN BED, WATCHING TV. SITTER AT BEDSIDE. NO S/SX OF DISTRESS NOTED. PT TOLERATED ROOM AIR WELL. BED IN LOCKED/LOWEST POSITION. CALL LIGHT IN REACH. ALL NEEDS ATTENDED TO.
[2018-09-25 20:00] VITALS: BP 109/60
--- NOTE | 2018-09-25 20:00 | NUR ---
RN NOTES RECEIVED PT ON BED ALERT AND AWAKE. SITTER AT BEDSIDE. NO APPARENT DISTRESS NOTED. DENIES PAIN AND DISCOMFORT AT THIS TIME. ON ROOM AIR WITH SPO2 OF 92%, NO SOB NOTED AT THIS TIME. IV ON RIGHT HAND #20 INTACT AND PATENT, FLUSHING WELL. SITTER AT THE BEDSIDE AT ALL TIME. SKIN ASSESSMENT HAS BEEN DONE. KEPT CLEAN, DRY AND COMFORTABLE. SAFETY , ISOLATION AND FALL PRECAUTIONS OBSERVED AND MAINTAINED. WILL CONTINUE TO MONITOR PT.
--- NOTE | 2018-09-26 00:55 | NUR ---
PT PLACED ON BIPAP PER PREVIOUS SETTINGS. PT REFUSING BIPAP PREVIOUSLY DUE TO INCREASE PRESSURE. EPAP DECREASED TO 5 PER PT COMFORT. Addendum: 09/26/18 at 0058 by FRANCESCA AGOSTO RT Amended: Links added.
[2018-09-26] MEDS: IPRATROPIUM NEB FS 0.5 MG/2.5 ML AMPUL.NEB NEB SCH ×3 (02:00→13:07)
[2018-09-26] MEDS: ALBUTEROL HALF STRENGTH 1.25 MG/3 ML VIAL.NEB NEB SCH ×3 (02:00→13:07)
[2018-09-26] MEDS: MEROPENEM 500 MG in IV NS 0.9% 100 ML IV SCH ×2 (02:11→10:04)
[2018-09-26 04:00] VITALS: BP 108/75
[2018-09-26 06:14] LABS: BASOPHILS % (AUTO) 0.8 % (0.0-2.0); HEMATOCRIT 44 % (33-45); HEMOGLOBIN 14.5 g/dL (11.5-14.8); LYMPHOCYTES # (AUTO) 1.6 /CMM (0.8-4.8); LYMPHOCYTES % (AUTO) 29.3 % (20.0-44.0); MEAN CORPUSCULAR HGB CONC 33 g/dl (31.0-36.0); MEAN CORPUSCULAR VOLUME 89 fL (82-100); MONOCYTES # (AUTO) 0.5 /CMM (0.1-1.30); MONOCYTES % (AUTO) 9.2 % (2.0-12.0); NEUTROPHILS # (AUTO) 2.9 /CMM (1.8-8.9); NEUTROPHILS % (AUTO) 54.7 % (43.0-81.0); PLATELET COUNT (AUTO) 174 /CMM (150-450); WHITE BLOOD COUNT (AUTO) 5.3 K/uL (4.3-11.0)
[2018-09-26 06:33] LABS: ALBUMIN 3.1 g/dL (3.4-5.0); BILIRUBIN,DIRECT 0.1 mg/dL (0.0-0.2); BILIRUBIN,TOTAL 1.3 mg/dL (0.2-1.0); CALCIUM, SERUM 9.1 mg/dL (8.5-10.1); CREATININE 0.9 mg/dL (0.6-1.3); MAGNESIUM 2.3 mg/dL (1.8-2.4); PHOSPHORUS 3.8 mg/dL (2.5-4.9)
[2018-09-26 08:00] VITALS: BP 111/65
[2018-09-26] MEDS: FUROSEMIDE 40 MG TABLET PO SCH (08:16)
[2018-09-26] MEDS: HEPARIN SODIUM, PORCINE 5000 UNITS/1 ML VIAL SQ SCH (08:18)
[2018-09-26] MEDS: CLOTRIMAZOLE 1% 15 GM TUBE TP SCH (08:25)
[2018-09-26] MEDS ORDERED: NITR100C6 PO (10:31)
[2018-09-26] MEDS ORDERED: FURO40TA5 PO (10:31)
[2018-09-26] MEDS ORDERED: IPRA0.2S9 NEB (10:31)
--- NOTE | 2018-09-26 12:00 | NUR ---
DR Cherie BARTHOLOMEW PAGED BACK. PT CAN BE TRANSFERRED TO SNF IF THERE IS AVAPS VENT AVAILABLE. PER SCHOOL SUPERINTENDENT RASTA IT WILL BE DELIVERED TO SNF BY 1600
[2018-09-26 16:00] VITALS: BP 104/57
--- NOTE | 2018-09-26 16:10 | NUR ---
PATIENT CLEAR BY FOR D/C TO [facility]. REPORT GIVEN TO FLACO EDMONDS FROM SNF. PT A/O X2, VS ARE STABLE , SATURATION 95% ON 2L VIA NC. NO S/S DISTRESS NOTED, NO PAIN REPORTED. PT HAS B/L BAREST FOLD REDNESS AND REDNESS ON SACRUM ARIA. PATIENT REFUSED PICTURES AND REFUSED TO SIGH BELONGINGS LIST AND D/C INSTRUCTIONS. ALL BELONGINGS WITH THE PATIENT INCLUDING HOME MEDS. D/C INSTRUCTIONS AND TEACHING PROVIDED TO PT. IV LINE REMOVED , ID BAND REMOVED. PT PICKED UP BY [facility]IA [facility].
[2018-09-26] MEDS ORDERED: NITROFURANTOIN/NITROFURAN MAC 100 MG CAPSULE PO SCH (21:00)
== END 2018-09-26 16:10 | DRG 280 ==
LOC: ICU 09:50 → TELE-TD 09-21 11:28 → TELE1 09-22 09:30 → MEDSG1 09-24 10:11
PROVIDERS: ADMIT Student in an Organized Health Care Education/Training Program; ATTEND Student in an Organized Health Care Education/Training Program
PROC: 5A09457 Assistance with Respiratory Ventilation, 24-96 Consecutive Hours, Continuous Positive Airway Pressure (ICD-10-PCS; principal; 2018-09-20)
DX: I50.33 Acute on chronic diastolic (congestive) heart failure (principal); I21.A1 Myocardial infarction type 2; J96.22 Acute and chronic respiratory failure with hypercapnia; J15.9 Unspecified bacterial pneumonia; N39.0 Urinary tract infection, site not specified; G93.40 Encephalopathy, unspecified; F20.0 Paranoid schizophrenia; E66.2 Morbid (severe) obesity with alveolar hypoventilation; E86.0 Dehydration; Z59.0 Homelessness; Z16.12 Extended spectrum beta lactamase (ESBL) resistance; R60.9 Edema, unspecified; L60.3 Nail dystrophy; B96.20 Unspecified Escherichia coli [E. coli] as the cause of diseases classified elsewhere; Z68.38 Body mass index [BMI] 38.0-38.9, adult; Z87.891 Personal history of nicotine dependence; F19.10 Other psychoactive substance abuse, uncomplicated; F20.9 Schizophrenia, unspecified; S62.101A Fracture of unspecified carpal bone, right wrist, initial encounter for closed fracture; R74.0 Nonspecific elevation of levels of transaminase and lactic acid dehydrogenase [LDH]
CPT/HCPCS: 36415; 36600; 70450-TC; 71045-TC; 76705-TC; 80048-TC; 80053-TC; 80061-TC; 80076-TC; 82803-TC; 82962-TC; 83605-TC; 83735-TC; 83880; 84100-TC; 84484-TC; 85025-TC; 87040-TC; 87081-TC; 93307-TC; 94760-TC; 94799-TC; 95819-TC; A4216; G0378; J1644; J1940; J1953; J2185; J2543; J7030; J7050; J7060